=== PATIENT | male | born 1985 | race Hispanic/Latino ===

== ENCOUNTER 2020-11-22 21:19 | Emergency (ER) | payer SELFPAY ==
[~2020-11-22] VITALS: Ht 182.9 cm; Wt 133.8 kg
[2020-11-22] MEDS ORDERED: MORPHINE SULFATE INJ 2 MG/ML SYR IV STA (21:46)
[2020-11-22] MEDS ORDERED: MORPHINE SULFATE INJ 4 MG/ML INJ 1ML ONE (22:36)
[2020-11-22] MEDS ORDERED: PROTONIX20 MG PO (23:42)
[2020-11-22] MEDS ORDERED: DICYCLOMINE HCL20 MG PO (23:42)
[2020-11-22 23:55] VITALS: BP 169/98
== END 2020-11-22 23:55 | disposition home or self-care (01) ==
LOC: FSED 21:46
DX: R10.13 Epigastric pain (principal)
CPT/HCPCS: 74176; 80048; 80076; 81003; 85025; 96374; 99284; J2270